=== PATIENT | male | born 1985 | race Caucasian/White ===

== ENCOUNTER 2017-12-23 12:34 | Day surgery (SDC) | payer MEDICAID ==
--- NOTE | 2017-12-23 13:55 | EDPHY ---
H & P Stated Complaint: nail in left hand from nail gun, not hammer Time Seen by Provider: 12/23/17 13:00 HPI/ROS: CHIEF COMPLAINT: Nail in left hand HISTORY OF PRESENT ILLNESS: 32-year-old immunocompetent [id number] male with up-to-date tetanus accidentally had a finishing nail enter his left palmar hand, through and through. The head of the nail is not visible or palpable. He has been unable to remove himself. No paresthesia distally. No other injury. This was accidental. This occurred while he was at work Last oral intake was 3 blueberries at approximately noon REVIEW OF SYSTEMS: A ten point review of systems was performed and is negative with the exception of the items mentioned in the HPI PAST MEDICAL & SURGICAL HISTORY: No pertinent medical or surgical history SOCIAL HISTORY: Works in construction PHYSICAL EXAM (Prior to examination, patient consented to physical exam, hands were washed and my usual and customary physical exam procedures followed) 1) GENERAL: Well-developed, well-nourished, alert and oriented. Appears to be in no acute distress. 2) HEAD: Normocephalic, atraumatic 3) HEENT: P clera anicteric. 4) NECK: Full range of motion, no meningeal signs. 5) LUNGS: Clear auscultation bilaterally, no wheezes, no rhonchi, no retractions. 6) HEART: Regular rate and rhythm, no murmur, no heave, no gallop. 7) ABDOMEN: No guarding, no rebound, no focal tenderness 8) MUSCULOSKELETAL: Left upper extremity: On the dorsal aspect of left hand he has the pointed aspect of a finishing nail protruding approximately 4 cm. On the palmar aspect the entry wound is visualized however I am unable to visualize or palpate the head of the nail. He has no signs of infection. He has partial extension flexion at the MCP albeit with significant pain. I am unable to fully assess flexor extensor function 9) BACK: No visual or palpable abnormality. 10) SKIN: Puncture wound to the left hand 11) Psychiatric: Patient is oriented X 3, there is no agitation. DIFFERENTIAL DIAGNOSIS: In no particular include but limited to open fracture, intraosseous foreign body, infection - Personal History Current Tetanus/Diphtheria Vaccine: Yes Current Tetanus Diphtheria and Acellular Pertussis (TDAP): Yes Tetanus Vaccine Date: 11/24/2014 - Medical/Surgical History Hx Asthma: No Hx Chronic Respiratory Disease: No Hx Diabetes: No Hx Cardiac Disease: No Hx Renal Disease: No Hx Cirrhosis: No Hx Alcoholism: No Hx HIV/AIDS: No Hx Splenectomy or Spleen Trauma: No Other PMH: pmh:hand infection. psh: dental, cholonoscopy - Social History Smoking Status: Never smoked Constitutional: Initial Vital Signs Temperature (C) 36.8 C 12/23/17 12:38 Heart Rate 93 12/23/17 12:38 Respiratory Rate 16 12/23/17 12:38 Blood Pressure 141/85 H 12/23/17 12:38 O2 Sat (%) 97 12/23/17 12:38 O2 Delivery Mode Room Air Allergies/Adverse Reactions: Milk Containing Products [dairy] Allergy (Verified 11/24/15 12:29) Home Medications: Medication Instructions Recorded Herbals/Supplements -Info Only 1 ea PO DAILY 11/24/15 Medical Decision Making Procedures: Procedure: Splint an Ortho Glass volar splint with protective padding around the protruding nail on the dorsal aspect was applied by ER engineering lab technician in order to immobilize the area and to protect the area while the patient is waiting for surgery. After application of the splint I returned and re-examined the patient. The splint was adequately immobilizing the joint and distal to the splint the patient's circulation and sensation were intact. Patient shows no signs of compartment syndrome. ED Course/Re-evaluation: 1:45 p.m.: Discussed the case with secondary supervising physician Dr. Jagdeep August in the ER. I reviewed the images with the radiologist. The patient has a nail in the left 4th metacarpal bone with the head of the nail on the palmar aspect. 1:55 p.m.: Phone consultation with Dr. Dominik Maharaj who reviewed the patient' s images remotely and recommended the patient receive antibiotics and he will plan on taking the patient to the operating room this afternoon. Will plan on splinting the patient in the meantime. Otherwise no injuries. - Data Points Laboratory Results: Laboratory Results 12/23/17 14:15 12/23/17 14:15 12/23/17 12/23/17 14:15 14:15 WBC 8.78 10^3/uL 10^3/uL (3.80-9.50) RBC 5.56 10^6/uL 10^6/uL (4.40-6.38) Hgb 17.3 g/dL g/dL (13.7-17.5) Hct 49.8 % % (40.0-51.0) MCV 89.6 fL fL (81.5-99.8) MCH 31.1 pg pg (27.9-34.1) MCHC 34.7 g/dL g/dL (32.4-36.7) RDW 11.6 % % (11.5-15.2) Plt Count 171 10^3/uL 10^3/uL (150-400) MPV 10.6 fL fL (8.7-11.7) Neut % (Auto) 76.1 % H % (39.3-74.2) Lymph % (Auto) 14.6 % L % (15.0-45.0) Campbell % (Auto) 8.0 % % (4.5-13.0) Eos % (Auto) 0.2 % L % (0.6-7.6) Baso % (Auto) 0.6 % % (0.3-1.7) Nucleat RBC Rel Count 0.0 % % (0.0-0.2) Absolute Neuts (auto) 6.69 10^3/uL H 10^3/uL (1.70-6.50) Absolute Lymphs (auto) 1.28 10^3/uL 10^3/uL (1.00-3.00) Absolute Monos (auto) 0.70 10^3/uL 10^3/uL (0.30-0.80) Absolute Eos (auto) 0.02 10^3/uL L 10^3/uL (0.03-0.40) Absolute Basos (auto) 0.05 10^3/uL 10^3/uL (0.02-0.10) Absolute Nucleated RBC 0.00 10^3/uL 10^3/uL (0-0.01) Immature Gran % 0.5 % % (0.0-1.1) Immature Gran # 0.04 10^3/uL 10^3/uL (0.00-0.10) Sodium 142 mEq/L mEq/L (135-145) Potassium 4.2 mEq/L mEq/L (3.5-5.2) Chloride 102 mEq/L mEq/L (97-110) Carbon Dioxide 27 mEq/l mEq/l (22-31) Anion Gap 13 mEq/L mEq/L (8-16) BUN 11 mg/dL mg/dL (7-23) Creatinine 0.8 mg/dL mg/dL (0.7-1.3) Estimated GFR > 60 Glucose 86 mg/dL mg/dL (70-100) Calcium 9.7 mg/dL mg/dL (8.5-10.4) Medications Given: Discontinued Medications Cefazolin Sodium/Dextrose (Ancef 1 Gm (Premix)) 50 mls @ 200 mls/hr IV EDNOW ONE PRN Reason: Protocol Stop: 12/23/17 13:48 Last Admin: 12/23/17 14:32 Dose: 50 mls Sodium Chloride (Ns) 1,000 mls @ 0 mls/hr IV ONCE ONE PRN Reason: Wide Open Stop: 12/23/17 15:19 Last Admin: 12/23/17 15:19 Dose: 1,000 mls Departure - Departure Disposition: To OP Cath/Surgery Clinical Impression: Retained intraosseous foreign body Condition: Fair Referrals: NONE *PRIMARY CARE P,. [Primary Care Provider] - As per Instructions
[2017-12-23 14:30] LABS: PLATELET COUNT 171 10^3/uL (150-400)
[2017-12-23] MEDS ORDERED: NS 1,000 ML IV ONE (15:18)
[2017-12-23] MEDS ORDERED: LR 1,000 ML IV ONE (17:24)
[2017-12-23 17:36] VITALS: PULSE 71
[2017-12-23] MEDS ORDERED: MIDAZOLAM 2 MG/2 ML VIAL IVP ONE (18:29)
--- NOTE | 2017-12-23 18:29 | GHP ---
[f rep st] PREOP HISTORY AND PHYSICAL DATE OF ADMISSION: 12/23/2017 ADMITTING DIAGNOSIS: Left hand injury secondary to nail gun with imbedded nail within 4th metacarpal . Possible small infractured injury, 4th metacarpal. HISTORY OF PRESENT ILLNESS: Patient is a 32-year-old gentleman who was operating a finishing nail david n. He indicates that the gun inadvertently discharged when he had it on automatic. His hand was in the way and he passed a nail into the 4th metacarpal of the left hand. The metacarpal may have a sma ll infraction injury with small bone fragment involved. The patient was seen in the emergency room. He is up to date on his tetanus. He was administered Ancef 2 g IV and transported to the preop area . Because he had recently eaten, we could not proceed with immediate removal of the nail. PAST MEDICAL HISTORY: ALLERGIES: None. MEDICATIONS: None. REVIEW OF SYSTEMS: Negative for diabetes, asthma, respiratory, or heart disease and associated sympt omatology. 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 PAST SURGICAL HISTORY: He has no other surgical history. EXAMINATION: GENERAL: Patient is alert, oriented, cooperative to exam. CHEST: Clear. CARDIAC: R egular rate and rhythm. ABDOMEN: Nontender. LEFT HAND: A finishing nail extending through the izzy sum of the hand. Entry wound is volar. He is able to flex, extend, abduct, and adduct the fingers. Sensation is intact. ASSESSMENT: Nail gun injury with retained nail and associated infraction of the 4th metacarpal. PLAN: Patient will undergo extraction of the nail, debridement of 4th metacarpal. /[id number]/MODL
--- NOTE | 2017-12-23 18:31 | PDANEPAE ---
ANE History of Present Illness left hand nail ANE Past Medical History - Cardiovascular History Hx Hypertension: No Hx Arrhythmias: No Hx Chest Pain: No Hx Coronary Artery / Peripheral Vascular Disease: No Hx CHF / Valvular Disease: No Hx Palpitations: No - Pulmonary History Hx COPD: No Hx Asthma/Reactive Airway Disease: No Hx Recent Upper Respiratory Infection: No Hx Oxygen in Use at Home: No Hx Sleep Apnea: No - Neurologic History Hx Cerebrovascular Accident: No Hx Seizures: No Hx Dementia: No - Endocrine History Hx Diabetes: No - Renal History Hx Renal Disorders: No - Liver History Hx Hepatic Disorders: No - Neurological & Psychiatric Hx Hx Neurological and Psychiatric Disorders: No - Cancer History Hx Cancer: No - Congenital Disorder History Hx Congenital Disorders: No - GI History Hx Gastrointestinal Disorders: Yes Gastrointestinal History Comment: Lactose and gluten intolerance - Chronic Pain History Chronic Pain: No - Surgical History Prior Surgeries: Left hand infected knuckle surgery ANE Review of Systems Review of Systems: - Exercise capacity METS (RN): 4 METS ANE Patient History - Allergies Allergies/Adverse Reactions: Milk Containing Products [dairy] Allergy (Verified 11/24/15 12:29) - Home Medications Home Medications: Herbals/Supplements -Info Only 1 ea PO DAILY 11/24/15 [Last Taken 12/20/17] - NPO status NPO Since - Liquids (Date): 12/23/17 NPO Since - Liquids (Time): 13:00 NPO Since - Solids (Date): 12/22/17 NPO Since - Solids (Time): 19:00 - Smoking Hx Smoking Status: Never smoked - Family Anes Hx Family Hx Anesthesia Complications: NA ANE Labs/Vital Signs - Labs Result Diagrams: 12/23/17 14:15 12/23/17 14:15 - Vital Signs Blood Pressure: 122/74 Heart Rate: 71 Respiratory Rate: 16 O2 Sat (%): 100 Height: 177.8 cm Weight: 79.379 kg ANE Physical Exam - Airway Neck exam: FROM Mallampati Score: Class 1 Mouth exam: normal dental/mouth exam - Pulmonary Pulmonary: no respiratory distress - Cardiovascular Cardiovascular: regular rate and rhythym - ASA Status ASA Status: I ANE Anesthesia Plan Anesthesia Plan: GA w LMA
[2017-12-23] MEDS ORDERED: fentaNYL 100 MCG/2 ML INJ ONE ×3 (18:47→19:54)
[2017-12-23] MEDS ORDERED: LIDOCAINE 2% 5 ML SDV ONE (18:47)
[2017-12-23] MEDS ORDERED: PROPOFOL 200 MG/20 ML VIAL ONE ×2 (18:47)
[2017-12-23] MEDS ORDERED: HYDROCODONE/APAP 5/325 TAB PO PRN (19:15)
[2017-12-23] MEDS ORDERED: ONDANSETRON 4 MG/2 ML VIAL IVP PRN (19:15)
[2017-12-23] MEDS ORDERED: NALOXONE HCL 0.4 MG/ML INJ IVP PRN (19:15)
[2017-12-23] MEDS ORDERED: HYDROmorphONE/DILAUDID 2 MG/ML INJ IVP PRN (19:15)
[2017-12-23] MEDS ORDERED: PROMETHAZINE HCL 25 MG/ML INJ IVP PRN (19:15)
[2017-12-23] MEDS ORDERED: KETOROLAC 30 MG/1 ML SDV ONE (19:16)
[2017-12-23] MEDS ORDERED: ONDANSETRON 4 MG/2 ML VIAL ONE (19:16)
[2017-12-23] MEDS ORDERED: DEXAMETHASONE 4 MG/ML VIAL ONE (19:16)
--- NOTE | 2017-12-23 19:50 | POSTANESTH ---
Post Anesthetic Evaluation Cardiovascular Status: Normal, Stable Respiratory Status: Normal, Stable Level of Consciousness/Mental Status: Can Participate in Eval Pain Control: Adequate, Prn Tx Ordered Nausea/Vomiting Control: Adequate, Prn Tx Ordered Complications Possibly Related to Anesthesia: None Noted
[2017-12-23] MEDS: fentaNYL 100 MCG/2 ML INJ IVP PRN ×2 (19:56→20:03)
[2017-12-23] MEDS ORDERED: HYDROCODONE/APAP 5/325 TAB ONE (20:10)
--- NOTE | 2017-12-23 20:50 | GOP ---
[f rep st] OPERATIVE REPORT DATE OF OPERATION: SURGEON: Dominik Maharaj MD ANESTHESIA: General. PREOPERATIVE DIAGNOSIS: Left hand nail gun injury with penetration of 4th metacarpal. POSTOPERATIVE DIAGNOSIS: Left hand nail gun injury with penetration of 4th metacarpal. PROCEDURE PERFORMED: 1. Removal of foreign body (nail, left hand). 2. Debridement, left 4th metacarpal infraction injury. FINDINGS: DESCRIPTION OF PROCEDURE: The patient was taken to the operating room, administered general anesthes ia, placed in the supine position. Left upper extremity was prepped and draped in normal sterile fas hion. The nail had entered palmarly and was extending out dorsally. We trimmed down the dorsal aspe ct and pounded the nail downward as the head was on the palmar side. Once we could feel the projecti on of the head palmarly, an incision was made along the palmar side. Sharp and blunt dissection perf ormed down to the level of the nail. We carefully dissected around it and irrigated this. Before ta mgadi the nail out, we exposed the dorsal entry wound. The wound was exposed through a linear incisio n in line with the 4th metacarpal. It was carried through dermal and subcutaneous tissues. Blunt sp reading was performed down to the nail entry point. Pliers were then placed on the nail volarly. As we brought the nail volarly, twisting it through the metacarpal, we used a blunt syringe full of half-strength Betadine and saline solution. The syringe blunt nose was then placed down into the 4th metacarpal space and the metacarpal was irrigated from dorsal to volar. Approximately 100 cc of fluid was irrigated through the bone. The incision sites w ere then irrigated themselves. We then closed dorsally with a 5-0 nylon suture and volarly with a 5- 0 nylon suture. Sterile compression was applied. The patient tolerated procedure well, was transfer red back to recovery in stable condition. No operative complications. COMPLICATIONS: None. /[id number]/MODL
[2017-12-23 20:56] VITALS: BP 108/62; RESP 13
[2017-12-23 20:58] VITALS: TEMP 98.6; O2SAT 94
== END 2017-12-23 20:59 | disposition home or self-care (01) ==
LOC: FSGY 17:22
PROVIDERS: ATTEND Orthopaedic Surgery Sports Medicine
PROC: 0JCK0ZZ Extirpation of Matter from Left Hand Subcutaneous Tissue and Fascia, Open Approach (ICD-10-PCS; principal; 2017-12-23 16:00)
DX: S61.245A Puncture wound with foreign body of left ring finger without damage to nail, initial encounter (principal); W29.4XXA Contact with nail gun, initial encounter; W45.0XXA Nail entering through skin, initial encounter; Z18.10 Retained metal fragments, unspecified
CPT/HCPCS: J0690; J1100; J1885; J2250; J2405; J2704; J3010